=== PATIENT | male | born 1995 | race Two or more races ===

== ENCOUNTER 2025-03-13 00:57 | Emergency (ER) | payer SELFPAY ==
[~2025-03-13] VITALS: Ht 180.3 cm; Wt 73.0 kg
[2025-03-13 01:03] VITALS: TEMP 36.9; O2SAT 98
[2025-03-13] MEDS: ONDANSETRON 4MG ODT PO ONE (02:14)
[2025-03-13 02:15] VITALS: TEMP 99.9
[2025-03-13] MEDS: ACETAMINOPHEN 325MG TABLET PO ONE (02:15)
[2025-03-13 02:20] LABS: CLARITY URINE CLEAR (CLEAR); COLOR URINE ORANGE (YELLOW); GLUCOSE URINE NEGATIVE (NEGATIVE); KETONES URINE TRACE (NEGATIVE); LEUKOCYTE ESTERASE URINE 1+ (NEGATIVE); NITRITE URINE NEGATIVE (NEGATIVE); OCCULT BLOOD URINE NEGATIVE (NEGATIVE); PH URINE 6.0 (4.5-8.0); PROTEIN URINE 2+ (NEGATIVE); SPECIFIC GRAVITY URINE 1.028 (1.005-1.030); UROBILINOGEN URINE 1.0 E.U./dL (0.2-1.0)
[2025-03-13 02:43] LABS: HEMATOCRIT. 45.5 % (42.0-52.0); HEMOGLOBIN. 15.2 g/dL (14.0-18.0); MEAN PLATELET VOLUME 8.6 fl (7.4-10.4); PLATELET 198 x1000/uL (130-400); RED BLOOD CELL COUNT 5.08 mill/uL (4.7-6.1); RED CELL DISTRIBUTION WIDTH 13.6 % (11.6-14.6)
[2025-03-13 03:01] LABS: CREATININE 1.2 mg/dL (0.6-1.3)
[2025-03-13 03:02] LABS: UREA NITROGEN BLOOD 7 mg/dL (9-23)
[2025-03-13 03:03] LABS: ASPARTATE AMINOTRANSFERASE 18 IU/L (<34); BILIRUBIN DIRECT 0.5 mg/dL (<=3.0)
[2025-03-13 03:04] LABS: BILIRUBIN TOTAL 1.1 mg/dL (0.1-1.0); PROTEIN TOTAL 7.6 g/dL (6.0-8.3)
[2025-03-13] MEDS: SODIUM CHLORIDE 0.9% 1,460 ML IV ONE (03:45)
[2025-03-13 03:46] LABS: SQUAMOUS EPITHELIAL CELL URINE FEW /lpf (RARE/1+)
[2025-03-13 03:47] LABS: RBC URINE 0-2 /hpf (0-2)
[2025-03-13 03:48] LABS: BACTERIA URINE NONE SEEN
[2025-03-13 05:22] LABS: BAND% 26.0 % (1.0-6.0); LYMPHOCYTES % MANUAL 4.0 % (20.0-50.0); METAMYELOCYTES % 2.0 % (0-0); MONOCYTES % MANUAL 6.0 % (2.0-8.0); MYELOCYTES % 1.0 % (0-0); NEUTROPHILS % MANUAL 61.0 % (45.0-75.0)
[2025-03-13 05:27] LABS: PLATELET ESTIMATE NORMAL
[2025-03-13 05:38] VITALS: BP 107/64; PULSE 87; RESP 16; O2SAT 99
== END 2025-03-13 05:24 | disposition home or self-care (01) ==
LOC: ER 01:15
DX: R11.2 Nausea with vomiting, unspecified (principal); R19.7 Diarrhea, unspecified; R10.13 Epigastric pain
CPT/HCPCS: 99284; 96360; 80076; 80048; 81003; 83690; 85025; 36415; 93005; Q0162; J7030